=== PATIENT | male | born 1965 | race Caucasian/White ===

== ENCOUNTER 2018-08-30 15:12 | Emergency (ER) | payer SELFPAY ==
--- NOTE | 2018-08-30 15:48 | PDOC ---
History of Present Illness - General Chief Complaint: Lightheaded Stated Complaint: DIZZINESS Time Seen by Provider: 08/30/18 15:43 - History of Present Illness Initial Comments: 08/30/18 15:46 53 yo M with no significant pmh who p/w lightheadedness. Patient reports celebrating grandchild , drinking 2 alcoholic beverages this evening, and standing up in house, when he felt sudden lightheadedness while standing, followed by 1 episode of NBNB emesis. Patient sat down and reports feeling "better." When EMS arrived to house patient reports sudden feeling nervousness, diaphoresis, and heart racing. Symptoms lasted approximately 1 minute, and resolved spontaneously. Denies h/o similar symptoms. Patient denies FELDMAN, vision change, palpitations, cough, wheezing, orthopena, PND , leg swelling/pain, N/V, F,C, CP, SOB, urinary complaints, hematuria, BPR, abdominal pain, diarrhea, constipation, weakness, sensory changes. PMHx: as noted above. Denies h/o ACS/[place], stent placement, CABg, stress testing. Denies h/o PE/DVT FHx: Denies h/o cardiac dz., [place] ROS: as noted SHx: Social Etoh, + 1/4 ppd tobacco use. Denies IVDA Allergies: NKDA Past History - Past Medical History Home Medications: Ambulatory Orders NK [No Known Home Medication] 08/30/18 - Suicide/Smoking/Psychosocial Hx Smoking History: Current every day smoker Number of Cigarettes Smoked Daily: 6 Information on smoking cessation initiated: No Review of Systems - Review of Systems Comments:: 08/30/18 15:47 GENERAL/CONSTITUTIONAL: No fever or chills. No weakness. HEAD, EYES, EARS, NOSE AND THROAT: No change in vision. No ear pain or discharge. No sore throat. CARDIOVASCULAR: No chest pain or shortness of breath RESPIRATORY: No cough, wheezing, or hemoptysis. GASTROINTESTINAL: No nausea, vomiting, diarrhea or constipation. GENITOURINARY: No dysuria, frequency, or change in urination. MUSCULOSKELETAL: No joint or muscle swelling or pain. No neck or back pain. SKIN: No rash NEUROLOGIC: + Lightheadedness. No headache, vertigo, loss of consciousness, or change in strength/sensation. ENDOCRINE: No increased thirst. No abnormal weight change HEMATOLOGIC/LYMPHATIC: No anemia, easy bleeding, or history of blood clots. ALLERGIC/IMMUNOLOGIC: No hives or skin allergy. *Physical Exam - Vital Signs Last Vital Signs Temp Pulse Resp BP Pulse Ox 98.1 F 98 H 19 115/70 99 08/30/18 15:14 08/30/18 15:14 08/30/18 15:14 08/30/18 15:14 08/30/18 15:14 - Physical Exam Comments: 08/30/18 15:47 GENERAL: Awake, alert, and fully oriented, in no acute distress HEAD: No signs of trauma, normocephalic, atraumatic EYES: PERRLA, EOMI, sclera anicteric, conjunctiva clear ENT: Auricles normal inspection, hearing grossly normal, nares patent, oropharynx clear without exudates. Moist mucosa NECK: Normal ROM, supple, no lymphadenopathy, JVD, or masses LUNGS: No distress, speaks full sentences, clear to auscultation bilaterally HEART: Regular rate and rhythm, normal S1 and S2, no murmurs, rubs or gallops, peripheral pulses normal and equal bilaterally. ABDOMEN: Soft, nontender, normoactive bowel sounds. No guarding, no rebound. No masses EXTREMITIES : Normal inspection, Normal range of motion, no edema. No clubbing or cyanosis. NEUROLOGICAL: Cranial nerves II through XII grossly intact. Normal speech, normal gait, no focal sensorimotor deficits SKIN: Warm, Dry, normal turgor, no rashes or lesions noted Medical Decision Making - Medical Decision Making 08/30/18 15:54 53 yo M with no significant pmh who p/w lightheadedness. Vitals wnl, AF, A&Ox3. Physical exam unremarkable. Patient without symptoms or complaints. Will assess for VBI/TIA, cardiac dysarrythmias, hypoglycemia, electrolyte abnml, metabolic and toxic derangements, acid-base disturbances, infection. 08/30/18 15:54 Ed Course: 08/30/18 16:23 Patient refuses lab eval, EKG Patient with adequate decision making capacity. Signs out AMA after risk discussion potential missed diagnosis, permanent disability and/or agrees to f/u pmd, with ED return precautions *DC/Admit/Observation/Transfer Diagnosis at time of Disposition: Lightheaded - Discharge Dispostion Disposition: AGAINST MEDICAL ADVICE Condition at time of disposition: Stable - Referrals - Patient Instructions Printed Discharge Instructions: DI for Syncope in Adults (Fainting) Additional Instructions: As discussed you may have undiagnosed illness or medical diagnosis that if left untreated can lead to multiple complications including, but not limited to permanent disability and . Should you reconsider you should turn to the emergency department for evaluation. - Post Discharge Activity
[2018-08-30 15:51] VITALS: BP 115/70; PULSE 98; TEMP 98.1; BMI 20.5
--- NOTE | 2018-08-30 16:14 | PDOC ---
Documentation entered by Conchis Nicolas SCRIBE, acting as scribe for Geovanny Singer MD. Geovanny Singer MD: This documentation has been prepared by the scribe, Conchis Nicolas SCRIBE, under my direction and personally reviewed by me in its entirety. I confirm that the documentation accurately reflects all work, treatment, procedures, and medical decision making performed by me. Attending Attestation - Resident Resident Name: Caleb Bay - ED Attending Attestation I have performed the following: I have examined & evaluated the patient, The case was reviewed & discussed with the resident, I agree w/resident's findings & plan, Exceptions are as noted - HPI HPI: 08/30/18 16:23 53 year old male with no pmh (smoker), visiting from [place], presents with near syncope. The patient is visiting his son, as his son's partner recently gave . This morning, pt was excited and celebrating. Had a few beers. While at home, (witnessed by son), pt started feel lightheaded and dizzy. Denied CP/SOB. [place] nausea and vomited once. Denies syncope. Pt reported that he soon felt immediately better. Pt's son witnessed the event, and called 911. EMS placed 1 liter of NS. - Physicial Exam PE: 08/30/18 16:23 GENERAL: Awake, alert, and fully oriented, in no acute distress HEAD: No signs of trauma EYES: PERRLA, EOMI, sclera anicteric, conjunctiva clear ENT: Auricles normal inspection, hearing grossly normal, nares patent, oropharynx clear without exudates. Moist mucosa NECK: Normal ROM, supple, no lymphadenopathy, JVD, or masses LUNGS: Breath sounds equal, clear to auscultation bilaterally. No wheezes, and no crackles HEART: Regular rate and rhythm, normal S1 and S2, no murmurs, rubs or gallops ABDOMEN: Soft, nontender, normoactive bowel sounds. No guarding, no rebound. No masses EXTREMITIES: Normal range of motion, no edema. No clubbing or cyanosis. No cords, erythema, or tenderness NEUROLOGICAL: Cranial nerves II through XII grossly intact. Normal speech, normal gait SKIN: Warm, Dry, normal turgor, no rashes or lesions noted - Medical Decision Making 08/30/18 16:32 A portion of this note was written by my scribe, under my supervision. Vital Signs Temp Pulse Resp BP Pulse Ox 98.1 F 98 H 19 115/70 99 08/30/18 15:14 08/30/18 15:14 08/30/18 15:14 08/30/18 15:14 08/30/18 15:14 Impression: near syncope The patient indicates to me that he would like to leave against medical advice. He reports that he feels well and without symptoms. States that he would like to be home with his newly borned grandson. I did indicate to the patient that he could have potentially have had vasovagal near syncope, however, I could not be completely certain. Though the patient does not have many risk factors, he is still over 50 years and smokes and cardiac is still within the differential. However, after a lengthy discussion with the patient and pt's son, they understand the risks of leaving AMA and knows that there is risk of potential cardiac and neurologic etiology. The patient understands that he will return to the ER if symptoms worsens and that he will return to the ER.
== END 2018-08-30 16:45 | disposition left against medical advice (07) ==
LOC: JER 15:12
DX: R42 Dizziness and giddiness (principal)
CPT/HCPCS: 99283-25